=== PATIENT | male | born 1985 | race Caucasian/White ===

== ENCOUNTER 2023-08-24 08:49 | Emergency (ER) | payer BC, OTHER ==
[~2023-08-24] VITALS: Ht 180.3 cm; Wt 79.4 kg
[2023-08-24 10:43] VITALS: BP 128/87; TEMP 98; O2SAT 100
[2023-08-24] MEDS ORDERED: ONDA4TAB5 PO (14:45)
== END 2023-08-24 14:52 | disposition home or self-care (01) ==
LOC: ER 09:01
DX: S06.2XAA Diffuse traumatic brain injury with loss of consciousness status unknown, initial encounter (principal); Z60.2 Problems related to living alone; W51.XXXA Accidental striking against or bumped into by another person, initial encounter; Y93.66 Activity, soccer; Y92.89 Other specified places as the place of occurrence of the external cause; Y99.8 Other external cause status
CPT/HCPCS: 70450-TC; 73030-TC